=== PATIENT | male | born 1945 | race Caucasian/White ===

== ENCOUNTER 2017-08-23 22:41 | Emergency (ER) | payer OTHER ==
[2017-08-23 22:47] VITALS: TEMP 97.7
--- NOTE | 2017-08-23 22:57 | CPEKG ---
Heart Rate: 145 RR Interval: 414 QRSD Interval: 84 QT Interval: 312 QTC Interval: 485 QRS [place]: 138 T Wave [place]: 14 EKG Severity - ABNORMAL ECG - EKG Impression: ATRIAL FIBRILLATION WITH RAPID V-RATE EKG Impression: RIGHT AXIS DEVIATION Electronically Signed By: Rodrigue Carr 24-Aug-2017 06:38:30
--- NOTE | 2017-08-23 23:24 | EDPHY ---
H & P Stated Complaint: fast heart rate for past 1.5 hrs, tiredness Time Seen by Provider: 08/23/17 22:58 HPI/ROS: Chief Complaint: Palpitations, fatigue HPI: 72-year-old male with no significant past medical history began having palpitations and fatigue about 90 min prior to arrival. Patient states that he was getting ready to watching television program when he felt his heart rate began to race. He has had some is mild associated shortness of breath. He has had increasing stressors over the last week or so. No chest pain or shortness of breath. He drinks occasional alcohol but has not been drinking heavily recently. No fevers or chills. No leg pain or swelling. Does not have a history of similar episodes in the past. ROS: 10 point Review of Systems is negative except as noted in the HPI. PMH: Denies Social History: No smoking, occasional alcohol, no recreational drug use Family History: No history of coronary disease, mother had a CVA and carotid stenosis, father from complications of dementia Physical Exam: Gen: Awake, Alert, No Distress HEENT: Nose: no rhinorrhea Eyes: PERRLA, EOMI Mouth: Moist mucosa Neck: Supple, no JVD Chest: nontender, lungs clear to auscultation Heart: Irregularly irregular, tachycardic, no murmur Abd: Soft, non-tender, no guarding Back: no CVA tenderness, no midline tenderness Ext: no edema, non-tender Skin: no rash Neuro: CN II-XII intact, Sensation grossly intact, Strength 5/5 in bilateral upper and lower extremities - Personal History Current Tetanus/Diphtheria Vaccine: Yes Current Tetanus Diphtheria and Acellular Pertussis (TDAP): Yes - Medical/Surgical History Hx Asthma: No Hx Chronic Respiratory Disease: No Hx Diabetes: No Hx Cardiac Disease: No Hx Renal Disease: No Hx Cirrhosis: No Hx Alcoholism: No Hx HIV/AIDS: No Hx Splenectomy or Spleen Trauma: No Other PMH: HTN, - Social History Smoking Status: Never smoked Constitutional: Initial Vital Signs Temperature (C) 36.5 C 08/23/17 22:44 Heart Rate 150 H 08/23/17 22:44 Respiratory Rate 18 08/23/17 22:44 Blood Pressure 166/126 H 08/23/17 22:44 O2 Sat (%) 97 08/23/17 22:44 O2 Delivery Mode Room Air Allergies/Adverse Reactions: codeine [Codeine] Allergy (Unknown, Verified 08/23/17 22:47) Unknown HAYFEVER Allergy (Mild, Uncoded 08/23/17 22:47) NASAL CONGEESTION Home Medications: Medication Instructions Recorded NK [No Known Home Meds] 08/23/17 Medical Decision Making - Diagnostics EKG Interpretation: ECG 1: Time 10:55 p.m., narrow complex tachycardia with a rate of 145, irregularly irregular, right axis deviation, no acute ST or T-wave changes. Impression: Atrial fibrillation with rapid ventricular rate ECG 2. Time 11:28 p.m., sinus rhythm with a rate of 98, right axis deviation, no acute ST or T-wave changes. ED Course/Re-evaluation: 72-year-old male presenting with 90 min of palpitations. He is in atrial fibrillation with RVR an ECG. I was discussing his condition with him during my initial encounter 1 9 noted on the monitor that he converted out of it. He was then in a sinus rhythm with a rate of 90. Patient states that he was feeling much better. Plan will be to repeat ECG, will check electrolytes and CBC. If the patient remains in sinus rhythm plan will be for discharge to home with outpatient follow up with Cardiology. Repeat ECG shows patient is sinus rhythm. He is symptom-free at this time. Electrolytes normal. Will discharge with follow up with Cardiology out as an outpatient, return for worsening. - Data Points Laboratory Results: Laboratory Results 08/23/17 22:58 08/23/17 22:58 08/23/17 08/23/17 22:58 22:58 WBC 8.90 10^3/uL 10^3/uL (3.80-9.50) RBC 5.16 10^6/uL 10^6/uL (4.40-6.38) Hgb 17.1 g/dL g/dL (13.7-17.5) Hct 46.7 % % (40.0-51.0) MCV 90.5 fL fL (81.5-99.8) MCH 33.1 pg pg (27.9-34.1) MCHC 36.6 g/dL g/dL (32.4-36.7) RDW 12.9 % % (11.5-15.2) Plt Count 257 10^3/uL 10^3/uL (150-400) MPV 10.0 fL fL (8.7-11.7) Neut % (Auto) 57.1 % % (39.3-74.2) Lymph % (Auto) 25.7 % % (15.0-45.0) [place] % (Auto) 9.1 % % (4.5-13.0) Eos % (Auto) 6.6 % % (0.6-7.6) Baso % (Auto) 0.9 % % (0.3-1.7) Nucleat RBC Rel Count 0.0 % % (0.0-0.2) Absolute Neuts (auto) 5.08 10^3/uL 10^3/uL (1.70-6.50) Absolute Lymphs (auto) 2.29 10^3/uL 10^3/uL (1.00-3.00) Absolute Monos (auto) 0.81 10^3/uL H 10^3/uL (0.30-0.80) Absolute Eos (auto) 0.59 10^3/uL H 10^3/uL (0.03-0.40) Absolute Basos (auto) 0.08 10^3/uL 10^3/uL (0.02-0.10) Absolute Nucleated RBC 0.00 10^3/uL 10^3/uL (0-0.01) Immature Gran % 0.6 % % (0.0-1.1) Immature Gran # 0.05 10^3/uL 10^3/uL (0.00-0.10) Sodium 139 mEq/L mEq/L (134-144) Potassium 3.7 mEq/L mEq/L (3.5-5.2) Chloride 105 mEq/L mEq/L (97-110) Carbon Dioxide 21 mEq/l L mEq/l (22-31) Anion Gap 13 mEq/L mEq/L (8-16) BUN 16 mg/dL mg/dL (7-23) Creatinine 1.0 mg/dL mg/dL (0.7-1.3) Estimated GFR > 60 Glucose 151 mg/dL H mg/dL (70-100) Calcium 9.3 mg/dL mg/dL (8.5-10.4) Departure - Departure Disposition: Home, Routine, Self-Care Clinical Impression: Atrial fibrillation Condition: Good Instructions: A-fib (Atrial Fibrillation) (ED) Additional Instructions: Return to the emergency department for chest pain, palpitations, worsening shortness of breath, fevers, chills, or any other concerns. Follow up with Cardiology in 3-4 days for further evaluation. Referrals: MADDY BOWERS [Other] - As per Instructions Samuel Patel MD [Medical Doctor] - As per Instructions
[2017-08-23 23:26] LABS: % IMMATURE GRANULYOCYTES 0.6 % (0.0-1.1); ABSOLUTE IMMATURE GRANULOCYTES 0.05 10^3/uL (0.00-0.10); ADD DIFF? NO; ADD MORPH? NO; ADD SCAN? NO; ATYPICAL LYMPHOCYTE FLAG 0 (0-99); FRAGMENT RBC FLAG 0 (0-99); HEMATOCRIT 46.7 % (40.0-51.0); HEMOGLOBIN 17.1 g/dL (13.7-17.5); LEFT SHIFT FLG 0 (0-99); LIPEMIA HEMOLYSIS FLAG 90 (0-99); MEAN CELL HEMOGLOBIN 33.1 pg (27.9-34.1); MEAN CELL HEMOGLOBIN CONCENTR. 36.6 g/dL (32.4-36.7); MEAN CELL VOLUME 90.5 fL (81.5-99.8); PLATELET CLUMPS FLAG 0 (0-99); PLATELET COUNT 257 10^3/uL (150-400); RED BLOOD CELL COUNT 5.16 10^6/uL (4.40-6.38); RED CELL DISTRIBUTION WIDTH 12.9 % (11.5-15.2)
--- NOTE | 2017-08-23 23:29 | CPEKG ---
Heart Rate: 98 RR Interval: 612 P-R Interval: 208 QRSD Interval: 82 QT Interval: 352 QTC Interval: 450 P [place]: 29 QRS [place]: 234 T Wave [place]: 19 EKG Severity - ABNORMAL ECG - EKG Impression: SINUS RHYTHM EKG Impression: RIGHT AXIS DEVIATION EKG Impression: PROBABLE INFERIOR INFARCT, AGE INDETERMINATE Electronically Signed By: Rodrigue Carr 24-Aug-2017 06:38:30
[2017-08-23 23:32] LABS: ANION GAP 13 mEq/L (8-16); CALCIUM 9.3 mg/dL (8.5-10.4); CARBON DIOXIDE 21 mEq/l (22-31); CHLORIDE 105 mEq/L (97-110); GLOMERULAR FILTRATION RATE > 60; GLUCOSE 151 mg/dL (70-100); POTASSIUM 3.7 mEq/L (3.5-5.2); SODIUM 139 mEq/L (134-144)
[2017-08-24] MEDS ORDERED: LORazepam 1 MG TAB PO ONE (00:20)
[2017-08-24 00:25] VITALS: BP 127/98; PULSE 90; RESP 16; O2SAT 93
== END 2017-08-24 00:25 | disposition home or self-care (01) ==
DX: I48.91 Unspecified atrial fibrillation (principal); I10 Essential (primary) hypertension

== ENCOUNTER → 2017-09-12 | Outpatient (CLI) | payer OTHER | LOC: BHFA 13:00 | PROVIDERS: ATTEND Internal Medicine Cardiovascular Disease | DX: I48.91 Unspecified atrial fibrillation (principal); R06.02 Shortness of breath ==

== ENCOUNTER → 2017-09-13 | Outpatient (CLI) | payer OTHER | LOC: BHFA 14:00 | PROVIDERS: ATTEND Internal Medicine Cardiovascular Disease | DX: I48.91 Unspecified atrial fibrillation (principal) ==

== ENCOUNTER 2018-12-14 15:43 | Emergency (ER) | payer OTHER ==
--- NOTE | 2018-12-14 16:07 | EDPHY ---
H & P Stated Complaint: Hx of Afib s RVR, "feels" like Afib now: "feeling off" Time Seen by Provider: 12/14/18 16:07 - Personal History Current Tetanus/Diphtheria Vaccine: Yes - Medical/Surgical History Hx Asthma: No Hx Chronic Respiratory Disease: No Hx Diabetes: No Hx Cardiac Disease: No Hx Renal Disease: No Hx Cirrhosis: No Hx Alcoholism: No Hx HIV/AIDS: No Hx Splenectomy or Spleen Trauma: No Other PMH: HTN, AFIB - Social History Smoking Status: Never smoked Constitutional: Initial Vital Signs Temperature (C) 36.7 C 12/14/18 15:57 Heart Rate 106 H 12/14/18 15:57 Respiratory Rate 16 12/14/18 15:57 Blood Pressure 146/79 H 12/14/18 15:57 O2 Sat (%) 96 12/14/18 15:57 O2 Delivery Mode [Post Room Air Procedure 4th] O2 Delivery Mode [Post Nasal Cannula Procedure 3rd] O2 Delivery Mode [Post Non-Rebreather Mask Procedure 2nd] O2 Delivery Mode [Post Non-Rebreather Mask Procedure 1st] O2 Delivery Mode [Procedural Non-Rebreather Mask 1st] O2 Delivery Mode [.Immediate Non-Rebreather Mask Pre-Procedure] O2 Delivery Mode Room Air O2 (L/minute) [Post Procedure 2 3rd] O2 (L/minute) [Post Procedure 15 2nd] O2 (L/minute) [Post Procedure 15 1st] O2 (L/minute) [Procedural 1st] 15 O2 (L/minute) [.Immediate Pre- 15 Procedure] Allergies/Adverse Reactions: codeine [Codeine] Allergy (Unknown, Verified 12/14/18 15:57) Unknown HAYFEVER Allergy (Mild, Uncoded 08/23/17 22:47) NASAL CONGEESTION Home Medications: Medication Instructions Recorded Rivaroxaban [Xarelto] 20 mg PO DAILY #30 tab 12/14/18 Medical Decision Making ED Course/Re-evaluation: CHIEF COMPLAINT: Afib HISTORY OF PRESENT ILLNESS: The patient is a 73 y/o male with a history of A-fib with RVR and hypertension complaining of being in atrial fibrillation for 15 hours. The patient was seen in this hospital last August for similar symptoms. He was able so spontaneously convert and was discharged home. He had a 24 hour heart monitor, stress test, and echo with Dr. Wilson, publication distributor, after being seen in the emergency department. There were no signs of blockage on those tests. For the last several weeks he has had a pressure behind his left shoulder blade and night sweats but denies chest pressure or pain. Yesterday the patient went into A-fib again and spontaneously converted after taking magnesium and going for a walk. The a-fib episode lasted for 1.5 hours. This morning at 1:30 am he started to have a-fib again. He has been unable to spontaneously convert today and decided to present to the emergency department. Today he has also "felt off ". He denies taking anticoagulants. No fever, headache, body aches, lightheadedness, chest pain, shortness of breath, cough, abdominal pain, urinary or bowel complaints, numbness, paresthesias. REVIEW OF SYSTEMS: A comprehensive 10 system review of systems is otherwise negative aside from elements mentioned in the history of present illness and medical decision making. PHYSICAL EXAM: HR, BP, O2 Sat, RR. Temp noted General Appearance: Alert, well hydrated, appropriate, and non-toxic appearing. Head: Atraumatic without scalp tenderness or obvious injury Eyes: Pupils equal, round, reactive to light and accommodation, EOMI, no trauma , no injection. Ears: Clear bilaterally, no perforation, normal landmarks Nose: Atraumatic, no rhinorrhea, clear. Throat: There is no erythema or exudates, no lesions, normal tonsils, mucus membranes moist. Neck: Supple, 2+ carotid upstroke, nontender, no lymphadenopathy. Respiratory: No retractions, no distress, no wheezes, and no accessory muscle use. Lungs are clear to auscultation bilaterally. Cardiovascular: Irregular rhythm with controlled rate, no murmurs, rubs, or gallops. Bilateral carotid, radial, dorsalis pedis, and posterior tibial pulses intact. Good capillary refill all extremities. Gastrointestinal: Abdomen is soft, nontender, non-distended, no masses, no rebound, no guarding, no peritoneal signs. Musculoskeletal: Normal active ROM of all extremities, atraumatic. Neurological: Alert, appropriate, and interactive. The patient has normal DTRs and non-focal cranial nerves, motor, sensory, and cerebellar exam. Skin: No rashes, good turgor, no nodules on palpation. Past medical history: Atrial fibrillation, hypertension Past surgical history: Denies Family history: Denies Social history: Lives in [place], single, retired DIAGNOSTICS/PROCEDURES/CRITICAL CARE TIME: EKG: The 12 lead EKG was interpreted by myself as atrial fibrillation with a slow ventricular rate of 103. See hard copy and/or "tracemaster" electronic copy for interpretation. Procedure: Electrical Cardioversion. Indication: Dysrhythmia. Risks, benefits, alternatives discussed with the patient and consent obtained. The patient was on a continuous cardiac monitor technician, with airway equipment at the bedside. The patient was on continuous pulse oximetry and passive CO2 monitor. The cardioversion was performed with 100 synchronized joules biphasic current. The cardioversion was successful. The patient tolerated the procedure well with no complications. The procedure was performed by myself. Procedure: Conscious sedation. Indication: Cardioversion The patient is an appropriate candidate to tolerate procedural sedation. The patient's vitals signs and mental status are appropriate. The risks, benefits and alternatives of the sedation were discussed with the patient. The patient is ASA classification 1. The patient's Mallampati airway score was 1 and the patient did meet the 3-3-2 airway measurements. A time out was completed. The patient was sedated with 100mg IV Propofol for sedation and 50mcg IV Fentanyl for pain. The patient was monitored with continuous pulse oximetry, awake overnight monitor and end tidal CO2. There were no complications and no significant hypoxemia. I performed both the sedation and the procedure. The total time I spent at the bedside during the procedural sedation was 20 minutes. The patient was examined after the procedural sedation and has returned to their pre-sedation baseline with normal vital signs and a normal examination. EKG: The 12 lead EKG was interpreted by myself as sinus rhythm with a rate of [address] elevation/changes. See hard copy and/or "tracemaster" electronic copy for interpretation. DIFFERENTIAL DIAGNOSIS: The differential diagnosis for the patient's irregular heart rate included but was not limited to various causes of sinus tachycardia such as dehydration and medicines, SVT, atrial flutter, atrial fibrillation, pulmonary causes. MEDICAL DECISION MAKING: The patient is a 73 y/o male with a history of A-fib with RVR and hypertension presenting with atrial fibrillation for 15 hours, onset at 1:30 am. After being seen in this emergency department last August and spontaneously converting, he was discharged home and had a 24 hour heart monitor, stress test, and echo with Dr. Wilson, publication distributor. There were no signs of blockage on those tests. On exam he has an irregular rhythm with controlled rate. Labs and EKG ordered; 15mg PO Xarleto administered. I have also discussed the risks and benefits associated with an electrical cardioversion, he is comfortable with proceeding with the cardioversion as long as he does not have an elevated troponin. 1625: I interpreted patient's EKG as atrial fibrillation/flutter with a slow ventricular rate of 103 1625: Patient has been moved to trauma room 1 for the cardioversion. His troponin is not elevated. 1633: Cardioversion performed. He is now in sinus rhythm with a rate of 62. Repeat EKG ordered. 1638: I interpreted patient's EKG as sinus rhythm with a rate of [address] elevation/changes. 1655: Patient is awake and feels much better. He remains asymptomatic. 1700: I consulted with Dr. Arevalo, publication distributor, regarding this patient. Patient will remain anticoagulated and follow up with the publication distributor next week. 1706: Reassessed patient and discussed plan for Xarelto and cardiology follow up. He will stay with his son in [place] until follow up with the publication distributor. Return precautions provided; patient is comfortable with this plan. - Data Points Laboratory Results: 12/14/18 16:21 POC Troponin I 0.03 ng/mL ng/mL (0.00-0.08) Medications Given: Discontinued Medications Fentanyl (Sublimaze) 50 mcg IVP EDNOW ONE Stop: 12/14/18 16:36 Last Admin: 12/14/18 16:36 Dose: 50 mcg Propofol (Diprivan) 100 mg IVP EDNOW ONE Stop: 12/14/18 16:36 Last Admin: 12/14/18 16:36 Dose: 100 mg Rivaroxaban (Xarelto) 15 mg PO EDNOW ONE Stop: 12/14/18 16:18 Last Admin: 12/14/18 16:24 Dose: 15 mg Point of Care Test Results: Chemistry 12/14/18 16:21 POC Troponin I 0.03 ng/mL ng/mL (0.00-0.08) Departure - Departure Disposition: Home, Routine, Self-Care Clinical Impression: Encounter for cardioversion procedure Atrial fibrillation Qualifiers: Atrial fibrillation type: unspecified Qualified Code(s): I48.91 - Unspecified atrial fibrillation Condition: Good Instructions: A-fib (Atrial Fibrillation) (ED), Cardioversion (DC) Additional Instructions: 1. Take Xarelto as prescribed. 2. Follow up with your publication distributor next week without fail. 3. Return to the Emergency Department for fever, chest pain, shortness of breath , increasing pain or other worsening of condition. Referrals: ANDRES,UNKNOWN [Other] - As per Instructions Ramon Wilson MD [Medical Doctor] - As per Instructions Maxime Arevalo MD [Medical Doctor] - As per Instructions Prescriptions: Rivaroxaban [Xarelto] 20 mg PO DAILY #30 tab Report Scribed for: Selvin Ty Report Scribed by: Anastasia Xiong Date of Report: 12/14/18 Time of Report: 16:20
[2018-12-14] MEDS ORDERED: RIVAROXABAN 15 MG TAB PO ONE (16:17)
[2018-12-14] MEDS ORDERED: PROPOFOL 200 MG/20 ML VIAL ONE (16:26)
[2018-12-14] MEDS ORDERED: fentaNYL 100 MCG/2 ML INJ ONE (16:28)
[2018-12-14] MEDS ORDERED: PROPOFOL 200 MG/20 ML VIAL IVP ONE (16:35)
[2018-12-14] MEDS ORDERED: fentaNYL 100 MCG/2 ML INJ IVP ONE (16:35)
[2018-12-14 17:04] VITALS: BP 124/82
--- NOTE | 2018-12-14 18:45 | CPEKG ---
Test Reason : OPEN Blood Pressure : / mmHG Vent. Rate : 103 BPM Atrial Rate : 199 BPM P-R Int : 145 ms QRS Dur : 093 ms QT Int : 347 ms P-R-T Axes : 000 200 045 degrees QTc Int : 454 ms Atrial fibrillation Right axis deviation Minimal ST elevation, inferior leads Confirmed by Selvin Ty ([id number]) on 12/14/2018 6:44:56 PM Referred By: Selvin Ty Confirmed By:Selvin Ty
--- NOTE | 2018-12-20 08:49 | CPEKG ---
Test Reason : OPEN Blood Pressure : / mmHG Vent. Rate : 066 BPM Atrial Rate : 066 BPM P-R Int : 197 ms QRS Dur : 098 ms QT Int : 401 ms P-R-T Axes : 061 155 057 degrees QTc Int : 421 ms Sinus rhythm Probable left atrial enlargement Right axis deviation Minimal ST elevation, anterior leads Sinus rhythm has replaced atrial fibrillation on prior Confirmed by Stevo Young ([id number]) on 12/20/2018 8:49:26 AM Referred By: Selvin Ty Confirmed By:Stevo Young
== END 2018-12-14 17:24 | disposition home or self-care (01) ==
PROC: 5A2204Z Restoration of Cardiac Rhythm, Single (ICD-10-PCS; principal; 2018-12-14)
DX: I48.91 Unspecified atrial fibrillation (principal); I10 Essential (primary) hypertension
CPT/HCPCS: 92960; 93005; 96374; 99152; 99285; J2704; J3010; 84484-ER

== ENCOUNTER → 2019-01-01 | Outpatient (CLI) | payer OTHER | LOC: BHFA 14:00 | PROVIDERS: ATTEND Internal Medicine Interventional Cardiology | DX: R07.9 Chest pain, unspecified (principal); I48.91 Unspecified atrial fibrillation | CPT/HCPCS: 78452; 93017; A9500 ==

== ENCOUNTER → 2019-01-07 | Outpatient (CLI) | payer OTHER | LOC: BHFA 16:15 | PROVIDERS: ATTEND Internal Medicine Cardiovascular Disease | DX: I48.91 Unspecified atrial fibrillation (principal); I11.9 Hypertensive heart disease without heart failure ==